=== PATIENT | male | born 1975 | race Caucasian/White ===

== ENCOUNTER 2017-12-18 08:38 | Emergency (ER) | payer MEDICAID ==
[~2017-12-18] VITALS: Ht 188 cm; Wt 83.0 kg
[~2017-12-18 08:38] MED LIST: CEPH500C5 PO
[2017-12-18 08:47] VITALS: BP 125/72
[2017-12-18] MEDS ORDERED: cephalexin 250mg capsule PO ONE (09:10)
[2017-12-18] MEDS ORDERED: TETanus/Pertussis (Acell)/Diphther VAC/PF (Tdap-Adult) 0.5ml syringe IMVAC ONE (09:10)
[2017-12-18] MEDS ORDERED: sulfamethoxazole/trimethoprim DS (800/160mg) tablet PO ONE (09:10)
[2017-12-18] MEDS ORDERED: BACDS PO (09:15)
[2017-12-18] MEDS ORDERED: CEPH500C2 PO (09:15)
== END 2017-12-18 09:40 | disposition home or self-care (01) ==
LOC: ER 08:39
DX: L02.414 Cutaneous abscess of left upper limb (principal); F17.200 Nicotine dependence, unspecified, uncomplicated; F12.90 Cannabis use, unspecified, uncomplicated; Z79.899 Other long term (current) drug therapy
CPT/HCPCS: 87070; 87077; 87186; 90471; 90715; 99284

== ENCOUNTER 2017-12-20 16:34 | Emergency (ER) | payer MEDICAID ==
[~2017-12-20] VITALS: Ht 188 cm; Wt 86.4 kg
[~2017-12-20 16:34] MED LIST changes: +BACDS PO; +CEPH500C2 PO
[2017-12-20] MEDS ORDERED: morphine 4 MG/ML inj SYRINge IV ONE ×3 (17:45→20:10)
[2017-12-20] MEDS ORDERED: HYDR-565 PO (18:34)
[2017-12-20 20:28] VITALS: BP 126/73
== END 2017-12-20 20:44 | disposition home or self-care (01) ==
LOC: ER 16:34
DX: S92.002A Unspecified fracture of left calcaneus, initial encounter for closed fracture (principal); F17.200 Nicotine dependence, unspecified, uncomplicated; F12.10 Cannabis abuse, uncomplicated; Z79.899 Other long term (current) drug therapy; W18.39XA Other fall on same level, initial encounter; Y93.39 Activity, other involving climbing, rappelling and jumping off; Y92.89 Other specified places as the place of occurrence of the external cause; Y99.8 Other external cause status
CPT/HCPCS: 29515; 73610; 73650; 96374; 96376; 99284; A6449; J2270

== ENCOUNTER 2018-09-21 08:40 | Emergency (ER) | payer MEDICAID ==
[~2018-09-21] VITALS: Ht 190.5 cm; Wt 89.4 kg
[~2018-09-21 08:40] MED LIST changes: -BACDS PO; -CEPH500C2 PO; +GABA-532 PO
[2018-09-21 09:01] VITALS: BP 118/71
[2018-09-21] MEDS ORDERED: ONDA4TAB6 PO (09:25)
== END 2018-09-21 10:34 | disposition home or self-care (01) ==
LOC: ER 08:41
DX: R51 Headache (principal); R11.0 Nausea; R05 Cough; R61 Generalized hyperhidrosis; F12.90 Cannabis use, unspecified, uncomplicated; F17.200 Nicotine dependence, unspecified, uncomplicated; Z79.899 Other long term (current) drug therapy
CPT/HCPCS: 99283

== ENCOUNTER 2018-09-29 18:09 | Emergency (ER) | payer MEDICAID ==
[~2018-09-29] VITALS: Ht 188 cm; Wt 88.0 kg
[~2018-09-29 18:09] MED LIST changes: +ONDA4TAB6 PO
[2018-09-29 18:19] VITALS: BP 102/64
--- NOTE | 2018-09-29 19:05 | NUR ---
PATIENT SEEN HERE ON 09/24
[2018-09-29] MEDS ORDERED: GUAI237S46 PO (20:45)
[2018-09-29] MEDS ORDERED: BENZ-16 PO (20:45)
[2018-09-29] MEDS ORDERED: ALBU8.5H8 INH (20:46)
== END 2018-09-29 21:00 | disposition home or self-care (01) ==
LOC: ER 18:10
DX: J20.9 Acute bronchitis, unspecified (principal); Z86.14 Personal history of Methicillin resistant Staphylococcus aureus infection; F12.90 Cannabis use, unspecified, uncomplicated; Z79.899 Other long term (current) drug therapy
CPT/HCPCS: 99283

== ENCOUNTER 2018-11-09 19:24 | Emergency (ER) | payer MEDICAID ==
[~2018-11-09] VITALS: Ht 190.5 cm; Wt 73.5 kg
[~2018-11-09 19:24] MED LIST changes: +ALBU8.5H8 INH; -CEPH500C5 PO
[2018-11-09 19:35] VITALS: BP 121/75
[2018-11-09] MEDS ORDERED: traMADol 50MG tablet PO ONE (22:25)
[2018-11-09] MEDS ORDERED: LIDOcaine 1% w/epiNEPHrine 1:200,000 30ml vial SQ ONE (22:25)
[2018-11-09] MEDS ORDERED: SULF1TAB49 PO (23:09)
[2018-11-09] MEDS ORDERED: TRAM50TA2 PO (23:09)
[2018-11-09] MEDS ORDERED: CEPH500C5 PO (23:09)
[2018-11-09] MEDS ORDERED: GABA-532 PO (23:12)
== END 2018-11-09 23:27 | disposition home or self-care (01) ==
LOC: ER 19:25
DX: L02.214 Cutaneous abscess of groin (principal); G62.9 Polyneuropathy, unspecified; M79.672 Pain in left foot; F17.200 Nicotine dependence, unspecified, uncomplicated; Z86.14 Personal history of Methicillin resistant Staphylococcus aureus infection; Z86.19 Personal history of other infectious and parasitic diseases; Z79.899 Other long term (current) drug therapy
CPT/HCPCS: 10060; 99283; J3490

== ENCOUNTER 2019-05-13 17:39 | Emergency (ER) | payer MEDICAID ==
[~2019-05-13] VITALS: Ht 190.5 cm; Wt 100.0 kg
[2019-05-13] MEDS ORDERED: HYDROcodone/acetaminophen 5mg/325mg tablet PO ONE ×2 (18:10→23:10)
[2019-05-13] MEDS ORDERED: LIDOcaine 1% W/epiNEPHrine 1:200,000 10ml vial IJ ONE (18:15)
[2019-05-13] MEDS ORDERED: LIDOcaine 1% w/EPI 1:200,000 injection 10mL vial IM ONE (18:15)
--- NOTE | 2019-05-13 19:10 | NUR ---
WOUNDS IRRIGATED, PT GIVEN NORCO 45 MIN AGO. PA UPDATED AND WILL BE IN TO SUTURE SHORTLY. PT UPDATED. CURRENT VSS.
--- NOTE | 2019-05-13 20:51 | NUR ---
RIA RODRÍGUEZ REQUESTED TO [facility] PT AND SHE REPORTS SHE IS TRYING TO SEE HIM NEXT. PT UPDATED.
--- NOTE | 2019-05-13 21:02 | NUR ---
RIA RODRÍGUEZ AT BEDSIDE BEGINNING TO SUTURE. PTS MOTHER AND STEPFATHER ARE AT BEDSIDE. PT REPROTS APIN IS INCREASING TO ALL AREAS BITTEN AND IT IS 6 OUT OF 10. REPORTS HE IS UP TO DATE ON HIS TETNUS.
--- NOTE | 2019-05-13 22:04 | NUR ---
RIA RODRÍGUEZ COMPLETED SUTURING. PT TO HAVE SIMPLE DRESSINGS PLACED TO LARGER SUTURED AREAS.
[2019-05-13] MEDS ORDERED: IBUP-1984 PO (22:06)
[2019-05-13] MEDS ORDERED: AMOX-422 PO (22:06)
[2019-05-13] MEDS ORDERED: BACI28.42 TOP (22:47)
[2019-05-13] MEDS ORDERED: HYDR-4383 PO (22:47)
[2019-05-13 23:31] VITALS: BP 138/90
== END 2019-05-13 23:33 | disposition home or self-care (01) ==
LOC: ER 17:40
DX: S51.811A Laceration without foreign body of right forearm, initial encounter (principal); S41.111A Laceration without foreign body of right upper arm, initial encounter; S21.112A Laceration without foreign body of left front wall of thorax without penetration into thoracic cavity, initial encounter; S31.821A Laceration without foreign body of left buttock, initial encounter; S40.022A Contusion of left upper arm, initial encounter; F12.90 Cannabis use, unspecified, uncomplicated; Z79.2 Long term (current) use of antibiotics; Z79.899 Other long term (current) drug therapy; Z86.14 Personal history of Methicillin resistant Staphylococcus aureus infection; W54.0XXA Bitten by dog, initial encounter; Y93.01 Activity, walking, marching and hiking; Y92.89 Other specified places as the place of occurrence of the external cause; Y99.8 Other external cause status
CPT/HCPCS: 12004; 99284

== ENCOUNTER 2019-05-22 10:51 | Emergency (ER) | payer MEDICAID ==
[~2019-05-22] VITALS: Ht 190.5 cm; Wt 85.0 kg
[~2019-05-22 10:51] MED LIST changes: +BACI28.42 TOP; +HYDR-4383 PO; +IBUP-1984 PO
--- NOTE | 2019-05-22 11:22 | NUR ---
PT NEEDS SUTURES REMOVED, AND MEDICATION PRESCRIPTION FOR HIS GABAPENTIN 300MG TID UNTIL HE CAN GET TO SEE HIS PMD.
[2019-05-22] MEDS ORDERED: GABA-530 PO (11:46)
[2019-05-22 12:10] VITALS: BP 130/72
== END 2019-05-22 12:11 | disposition home or self-care (01) ==
LOC: ER 10:52
DX: S51.811D Laceration without foreign body of right forearm, subsequent encounter (principal); S21.112D Laceration without foreign body of left front wall of thorax without penetration into thoracic cavity, subsequent encounter; S31.821D Laceration without foreign body of left buttock, subsequent encounter; S51.812D Laceration without foreign body of left forearm, subsequent encounter; M79.672 Pain in left foot; M79.671 Pain in right foot; F12.90 Cannabis use, unspecified, uncomplicated; Z86.14 Personal history of Methicillin resistant Staphylococcus aureus infection; Z86.19 Personal history of other infectious and parasitic diseases; Z79.899 Other long term (current) drug therapy; Z76.0 Encounter for issue of repeat prescription; W54.0XXD Bitten by dog, subsequent encounter
CPT/HCPCS: 99283